=== PATIENT | male | born 1960 | race African-American/Black ===

== ENCOUNTER 2020-09-12 10:50 | Inpatient (IN) | payer OTHER ==
[2020-09-12 12:46] LABS: BASO % 0.4 % (0-2.0); EOS % 4.6 % (0-4.5); HEMATOCRIT 39.5 % (35.4-49); HEMOGLOBIN 12.4 GM/dL (11.7-16.9); MCH 24.9 pg (25.7-33.7); MCHC 31.3 g/dl (32.0-35.9); MEAN CELL VOLUME 79.4 fl (80-96); MEAN PLT VOLUME 9.3 fl (7.5-11.1); MONO % 8.1 % (3.8-10.2); NEUT % 75.9 % (42.8-82.8); PLATELET COUNT 242 K/MM3 (134-434); RBC 4.98 M/mm3 (4.00-5.60); RDW 15.1 % (11.9-15.9); WHITE BLOOD COUNT 6.9 K/mm3 (4.0-10.0)
[2020-09-12 12:55] LABS: INR 1.15 (0.83-1.09); PROTHROMBIN TIME (PATIENT) 13.9 SEC (9.7-13.0)
[2020-09-12 12:58] LABS: ACTIVATED PTT 32.7 SECONDS (25.2-36.5)
[2020-09-12 13:08] LABS: CALCIUM 9.1 mg/dL (8.5-10.1)
[2020-09-12 13:09] LABS: ALBUMIN 3.4 g/dl (3.4-5.0); BLOOD UREA NITROGEN 7.8 mg/dL (7-18); MAGNESIUM 1.7 mg/dL (1.8-2.4)
[2020-09-12 13:12] LABS: CREATININE 0.8 mg/dL (0.55-1.3)
[2020-09-12 13:14] LABS: BILIRUBIN,TOTAL 0.4 mg/dL (0.2-1); TOT PROT 7.8 g/dl (6.4-8.2)
[2020-09-13 07:14] LABS: HEMATOCRIT 35.9 % (35.4-49); HEMOGLOBIN 11.4 GM/dL (11.7-16.9); MCH 24.8 pg (25.7-33.7); MCHC 31.8 g/dl (32.0-35.9); MEAN CELL VOLUME 78.1 fl (80-96); MEAN PLT VOLUME 9.1 fl (7.5-11.1); PLATELET COUNT 226 K/MM3 (134-434); RBC 4.59 M/mm3 (4.00-5.60); RDW 14.8 % (11.9-15.9); WHITE BLOOD COUNT 6.4 K/mm3 (4.0-10.0)
[2020-09-13 07:20] LABS: INR 1.25 (0.83-1.09)
[2020-09-13 07:35] LABS: CALCIUM 9.1 mg/dL (8.5-10.1)
[2020-09-13 07:36] LABS: BLOOD UREA NITROGEN 8.4 mg/dL (7-18); MAGNESIUM 1.5 mg/dL (1.8-2.4)
[2020-09-13 07:39] LABS: CREATININE 0.7 mg/dL (0.55-1.3)
[2020-09-14 08:23] LABS: ALBUMIN 3.3 g/dl (3.4-5.0); BLOOD UREA NITROGEN 6.1 mg/dL (7-18); MAGNESIUM 1.7 mg/dL (1.8-2.4)
[2020-09-14 08:26] LABS: CREATININE 0.7 mg/dL (0.55-1.3); PHOSPHOROUS 2.6 mg/dL (2.5-4.9)
[2020-09-14 08:27] LABS: BILIRUBIN,TOTAL 0.8 mg/dL (0.2-1); TOT PROT 7.3 g/dl (6.4-8.2)
[2020-09-14 14:40] VITALS: BP 123/86; PULSE 74; TEMP 98.3
[2020-09-14 14:48] VITALS: BMI 17.9
== END 2020-09-14 21:05 | disposition short-term general hospital (02) | DRG 110 ==
LOC: JER 10:50 → JERBED 11:18 → J7W 09-13 11:21 → J5S 09-14 18:19
PROVIDERS: ADMIT Internal Medicine; ATTEND Internal Medicine
DX: C13.1 Malignant neoplasm of aryepiglottic fold, hypopharyngeal aspect (principal); R13.12 Dysphagia, oropharyngeal phase; I10 Essential (primary) hypertension; E78.5 Hyperlipidemia, unspecified; F31.9 Bipolar disorder, unspecified; B35.1 Tinea unguium; R62.7 Adult failure to thrive; F03.90 Unspecified dementia, unspecified severity, without behavioral disturbance, psychotic disturbance, mood disturbance, and anxiety; G40.909 Epilepsy, unspecified, not intractable, without status epilepticus; D64.9 Anemia, unspecified; E43 Unspecified severe protein-calorie malnutrition; Z68.1 Body mass index [BMI] 19.9 or less, adult
CPT/HCPCS: 36415; 71045-TC-FY; 80048; 80053; 83735; 84100; 85025; 85027; 85610; 85730; 86850; 86900; 86901; 93005; 93010; 99285-25; C9803; U0003

== ENCOUNTER 2020-10-17 13:14 | Observation (INO) | payer OTHER ==
[2020-10-17 13:28] VITALS: BMI 19.5
[2020-10-17] MEDS ORDERED: DIPHTH,PERTUSS(ACELL),TET 0.5 ML DISP.SYRIN IM ONE ×2 (14:07→14:27)
[2020-10-17 14:54] LABS: BASO % 0.6 % (0-2.0); EOS % 1.9 % (0-4.5); HEMATOCRIT 28.8 % (35.4-49); HEMOGLOBIN 9.1 GM/dL (11.7-16.9); LYMPH % 7.3 % (8-40); MCH 24.9 pg (25.7-33.7); MCHC 31.8 g/dl (32.0-35.9); MEAN CELL VOLUME 78.3 fl (80-96); MEAN PLT VOLUME 7.7 fl (7.5-11.1); MONO % 5.8 % (3.8-10.2); NEUT % 84.4 % (42.8-82.8); PLATELET COUNT 563 K/MM3 (134-434); RBC 3.67 M/mm3 (4.00-5.60); RDW 16.9 % (11.9-15.9)
[2020-10-17 15:06] LABS: INR 1.1 (0.83-1.09); PROTHROMBIN TIME (PATIENT) 13.3 SEC (9.7-13.0)
[2020-10-17 15:09] LABS: ACTIVATED PTT 37.9 SECONDS (25.2-36.5)
[2020-10-17 15:19] LABS: CHLORIDE 100 mmol/L (98-107); POTASSIUM 4.8 mmol/L (3.5-5.1); SODIUM 134 mmol/L (136-145)
[2020-10-17 15:21] LABS: CALCIUM 8.7 mg/dL (8.5-10.1)
[2020-10-17 15:22] LABS: ALBUMIN 2.7 g/dl (3.4-5.0); ANION GAP 5 MMOL/L (8-16); BLOOD UREA NITROGEN 11.9 mg/dL (7-18); CO2 29 mmol/L (21-32); GLUCOSE,RANDOM 73 mg/dL (74-106); MAGNESIUM 1.9 mg/dL (1.8-2.4)
[2020-10-17 15:25] LABS: CREATININE 0.6 mg/dL (0.55-1.3); PHOSPHOROUS 2.8 mg/dL (2.5-4.9); SGOT/AST 30 U/L (15-37); SGPT/ALT 31 U/L (13-61)
[2020-10-17 15:26] LABS: BILIRUBIN,TOTAL 0.2 mg/dL (0.2-1)
[2020-10-17 15:27] LABS: TOT PROT 7.6 g/dl (6.4-8.2)
[2020-10-17 15:28] LABS: ALK PHOS 140 U/L (45-117)
[2020-10-17 16:57] LABS: PH,URINE >= 9.0 (5.0-8.0); URINE APPEARANCE CLOUDY; URINE BILIRUBIN NEGATIVE (NEGATIVE); URINE COLOR YELLOW; URINE GLUCOSE (UA) NEGATIVE (NEGATIVE); URINE KETONE NEGATIVE (NEGATIVE); URINE LEUK ESTERASE NEGATIVE (NEGATIVE); URINE NITRITE NEGATIVE (NEGATIVE); URINE PROTEIN NEGATIVE (NEGATIVE); URINE UROBILINOGEN 0.2 mg/dL (0.2-1.0)
[2020-10-18] MEDS ORDERED: VANCOMYCIN 1,000 MG in DEXTROSE 5%-WATER - 250 ML IVPB ONE (05:54)
[2020-10-18] MEDS ORDERED: PIPERACILLIN/TAZOB 4.5 GM 4.5 GM in DEXTROSE 5%-WATER 100 ML IVPB ONE (05:55)
[2020-10-18] MEDS ORDERED: PIPERACILLIN/TAZOB 4.5 GM 4.5 GM/100 ML BAG IVPB ONE (06:21)
[2020-10-18] MEDS ORDERED: VANCOMYCIN 1 GRAM (PRE-DOCKED) 1,000 MG/250 ML BAG IVPB ONE (08:45)
[2020-10-18 08:52] LABS: BASO % 0.7 % (0-2.0); EOS % 2.1 % (0-4.5); HEMATOCRIT 26.6 % (35.4-49); HEMOGLOBIN 8.9 GM/dL (11.7-16.9); MCH 25.7 pg (25.7-33.7); MCHC 33.4 g/dl (32.0-35.9); MEAN CELL VOLUME 76.9 fl (80-96); MEAN PLT VOLUME 7.3 fl (7.5-11.1); MONO % 5.8 % (3.8-10.2); NEUT % 81.4 % (42.8-82.8); PLATELET COUNT 517 K/MM3 (134-434); RBC 3.46 M/mm3 (4.00-5.60); WHITE BLOOD COUNT 9.2 K/mm3 (4.0-10.0)
[2020-10-18 09:14] LABS: POTASSIUM 4.5 mmol/L (3.5-5.1)
[2020-10-18 09:25] LABS: ALBUMIN 2.5 g/dl (3.4-5.0); CALCIUM 8.9 mg/dL (8.5-10.1)
[2020-10-18 09:28] LABS: CREATININE 0.7 mg/dL (0.55-1.3)
[2020-10-18 09:33] LABS: BILIRUBIN,TOTAL 0.9 mg/dL (0.2-1)
[2020-10-18 09:37] LABS: BLOOD UREA NITROGEN 10.8 mg/dL (7-18)
[2020-10-18 15:01] VITALS: TEMP 98.5
[2020-10-18] MEDS ORDERED: MAGNESIUM HYDROXIDE 400 MG/5 ML SUSPENSION PO PRN (17:00)
[2020-10-18 21:00] VITALS: BP 155/99; PULSE 89
[2020-10-18] MEDS ORDERED: FAMOTIDINE 20 MG TABLET PEG SCH (22:00)
[2020-10-18] MEDS ORDERED: GEMFIBROZIL 600 MG TABLET (FP) PO SCH (22:00)
[2020-10-18] MEDS ORDERED: MIRTAZAPINE 15 MG TABLET (FP) GT SCH (22:00)
[2020-10-19] MEDS ORDERED: THIAMINE HCL 100 MG TABLET (FP) PO SCH (10:00)
[2020-10-19] MEDS ORDERED: amLODIPine BESYLATE 5 MG TABLET (FP) GT SCH (10:00)
== END 2020-10-18 21:00 | disposition short-term general hospital (02) ==
LOC: JER 13:14 → JERBED 13:58
PROVIDERS: ADMIT Internal Medicine; ATTEND Internal Medicine
PROC: 3E0234Z Introduction of Serum, Toxoid and Vaccine into Muscle, Percutaneous Approach (ICD-10-PCS; principal; 2020-10-17)
PROC: 3E03329 Introduction of Other Anti-infective into Peripheral Vein, Percutaneous Approach (ICD-10-PCS; 2020-10-17)
DX: R55 Syncope and collapse (principal); R29.6 Repeated falls; S00.83XA Contusion of other part of head, initial encounter; G40.909 Epilepsy, unspecified, not intractable, without status epilepticus; F10.21 Alcohol dependence, in remission; R13.10 Dysphagia, unspecified; J45.909 Unspecified asthma, uncomplicated; J18.9 Pneumonia, unspecified organism; I10 Essential (primary) hypertension; Z20.822 Contact with and (suspected) exposure to COVID-19; R79.89 Other specified abnormal findings of blood chemistry; M25.561 Pain in right knee; F31.9 Bipolar disorder, unspecified; E78.5 Hyperlipidemia, unspecified; Z85.818 Personal history of malignant neoplasm of other sites of lip, oral cavity, and pharynx; Z93.1 Gastrostomy status; Z87.891 Personal history of nicotine dependence; I45.81 Long QT syndrome; D64.9 Anemia, unspecified; F20.9 Schizophrenia, unspecified; W18.39XA Other fall on same level, initial encounter; Y93.89 Activity, other specified; Y92.099 Unspecified place in other non-institutional residence as the place of occurrence of the external cause
CPT/HCPCS: 36415; 70450-TC; 71045-TC-FY; 72125-TC; 72170-TC-FY; 73562-TC-RT-FY; 80053; 80177; 80185; 81003; 82550; 82553; 83735; 84100; 84484; 85025; 85610; 85730; 87040; 87086; 90471; 90715; 93005; 93010; 96365; 96367; 99285-25; C9803; G0378; U0003

== ENCOUNTER 2020-11-02 10:19 | Emergency (ER) | payer OTHER ==
[2020-11-02 11:23] VITALS: BMI 23.3
[2020-11-02 12:21] LABS: BASO % 0.5 % (0-2.0); EOS % 1.2 % (0-4.5); HEMATOCRIT 30.1 % (35.4-49); HEMOGLOBIN 9.6 GM/dL (11.7-16.9); LYMPH % 11.8 % (8-40); MCH 25.4 pg (25.7-33.7); MCHC 31.9 g/dl (32.0-35.9); MEAN CELL VOLUME 79.7 fl (80-96); MEAN PLT VOLUME 9.2 fl (7.5-11.1); MONO % 9.8 % (3.8-10.2); NEUT % 76.7 % (42.8-82.8); PLATELET COUNT 356 K/MM3 (134-434); RBC 3.77 M/mm3 (4.00-5.60); RDW 19.8 % (11.9-15.9); WHITE BLOOD COUNT 6.9 K/mm3 (4.0-10.0)
[2020-11-02 12:40] LABS: CALCIUM 9.3 mg/dL (8.5-10.1)
[2020-11-02 12:41] LABS: ALBUMIN 3.2 g/dl (3.4-5.0); BLOOD UREA NITROGEN 22.9 mg/dL (7-18)
[2020-11-02 12:44] LABS: CREATININE 0.9 mg/dL (0.55-1.3)
[2020-11-02 12:45] LABS: BILIRUBIN,TOTAL 0.7 mg/dL (0.2-1)
[2020-11-02 12:46] LABS: TOT PROT 8.3 g/dl (6.4-8.2)
[2020-11-02 12:51] LABS: POTASSIUM 5.3 mmol/L (3.5-5.1)
[2020-11-02 20:35] VITALS: BP 142/89; PULSE 77; TEMP 98.1
== END 2020-11-02 22:00 | disposition short-term general hospital (02) ==
LOC: JER 10:19
DX: R04.2 Hemoptysis (principal); D10.7 Benign neoplasm of hypopharynx
CPT/HCPCS: 36415; 70491-TC; 71045-TC-FY; 71260-TC; 80053; 85025; 99285-25; Q9967

== ENCOUNTER 2020-12-07 10:50 | Emergency (ER) | payer OTHER ==
[2020-12-07] MEDS ORDERED: MIDAZOLAM HCL 2 MG/2 ML SINGLE DOSE VIAL IM ONE (11:19)
[2020-12-07] MEDS ORDERED: MIDAZOLAM HCL 2 MG/2 ML SINGLE DOSE VIAL ONE (11:20)
[2020-12-07] MEDS ORDERED: LIDOCAINE 1%/EPI 1:100000 (50 ML MULTI DOSE VIAL) ONE (11:20)
[2020-12-07 11:33] VITALS: TEMP 98.1; BMI 19.0
[2020-12-07 19:31] VITALS: BP 117/69; PULSE 90
== END 2020-12-07 19:32 | disposition home or self-care (01) ==
LOC: JER 10:50
PROC: 08QNXZZ Repair Right Upper Eyelid, External Approach (ICD-10-PCS; principal; 2020-12-07)
PROC: 3E0234Z Introduction of Serum, Toxoid and Vaccine into Muscle, Percutaneous Approach (ICD-10-PCS; 2020-12-07)
DX: S01.111A Laceration without foreign body of right eyelid and periocular area, initial encounter (principal)
CPT/HCPCS: 74018-TC-FY; 99284-25

== ENCOUNTER 2020-12-08 21:21 | Inpatient (IN) | payer OTHER ==
[2020-12-08] MEDS ORDERED: RAPID SEQUENCE INTUBATION KIT NR ONE (21:28)
[2020-12-08] MEDS ORDERED: LACTATED RINGERS SOLUTION 1000 ML INFUS.BAG IV ONE ×2 (21:41→21:42)
[2020-12-08] MEDS ORDERED: VANCOMYCIN 1 GM in D5W (PRE-DOCKED) 1,000 MG/250 ML IVPB ONE (21:43)
[2020-12-08] MEDS ORDERED: PIPERACILLIN/TAZOB 4.5 GM 4.5 GM in DEXTROSE 5%-WATER 100 ML IVPB ONE (21:44)
[2020-12-08] MEDS ORDERED: ROCURONIUM BROMIDE 50 MG/5 ML VIAL IV ONE (21:45)
[2020-12-08] MEDS ORDERED: ETOMIDATE 20 MG/10 ML AMPUL IVPUSH ONE (21:45)
[2020-12-08] MEDS ORDERED: VANCOMYCIN 1 GRAM (PRE-DOCKED) 1,000 MG/250 ML BAG IVPB ONE (21:47)
[2020-12-08] MEDS ORDERED: PIPERACILLIN/TAZOB 4.5 GM 4.5 GM/100 ML BAG IVPB ONE (21:47)
[2020-12-08] MEDS ORDERED: MAGNESIUM SULF 50% (8.12 MEQ/2 ML-1 GM VIAL) IVPB ONE (21:59)
[2020-12-08 22:04] LABS: BASO % 0.4 % (0-2.0); EOS % 0.4 % (0-4.5); HEMATOCRIT 33.4 % (35.4-49); HEMOGLOBIN 10.3 GM/dL (11.7-16.9); LYMPH % 12.4 % (8-40); MCH 24.8 pg (25.7-33.7); MCHC 30.8 g/dl (32.0-35.9); MEAN CELL VOLUME 80.6 fl (80-96); MEAN PLT VOLUME 8.8 fl (7.5-11.1); MONO % 3.6 % (3.8-10.2); NEUT % 83.2 % (42.8-82.8); PLATELET COUNT 283 K/MM3 (134-434); RBC 4.14 M/mm3 (4.00-5.60); RDW 18.6 % (11.9-15.9); WHITE BLOOD COUNT 5.2 K/mm3 (4.0-10.0)
[2020-12-08 22:13] LABS: INR 1.53 (0.83-1.09); PROTHROMBIN TIME (PATIENT) 18.6 SEC (9.7-13.0)
[2020-12-08 22:15] LABS: ACTIVATED PTT 37.2 SECONDS (25.2-36.5)
[2020-12-08] MEDS ORDERED: SODIUM CHLORIDE 0.9% 500 ML INFUS.BAG IV ONE ×3 (22:15→23:03)
[2020-12-08 22:19] LABS: ARTERIAL BLD GAS O2 SATURATION 99.3 mmHg (95-98); ARTERIAL BLOOD GAS BASE EXCESS -10.6 mmol/L (-2-2); ARTERIAL BLOOD GAS PO2 255.5 mmHg (80-100)
[2020-12-08 22:20] LABS: ALLENS TEST POSITIVE; VENT MODE A/C
[2020-12-08 22:21] LABS: VENT RATE 12
[2020-12-08 22:22] LABS: ARTERIAL BLOOD GAS pH 7.119 (7.350-7.450)
[2020-12-08 22:23] LABS: CHLORIDE 115 mmol/L (98-107); SODIUM 154 mmol/L (136-145)
[2020-12-08] MEDS ORDERED: MAGNESIUM SULFATE IN WATER 2 GM/50 ML IVPB IVPB ONE (22:23)
[2020-12-08] MEDS ORDERED: MIDAZOLAM 100 MG/100 ML MG IVPB ONE (22:23)
[2020-12-08 22:26] LABS: ALBUMIN 2.7 g/dl (3.4-5.0); ANION GAP 16 MMOL/L (8-16); BLOOD UREA NITROGEN 66.5 mg/dL (7-18); CO2 22 mmol/L (21-32); GLUCOSE,RANDOM 81 mg/dL (74-106)
[2020-12-08 22:28] LABS: CREATININE 2.2 mg/dL (0.55-1.3); SGOT/AST 57 U/L (15-37); SGPT/ALT 23 U/L (13-61)
[2020-12-08 22:31] LABS: TOT PROT 7.2 g/dl (6.4-8.2)
[2020-12-08 22:32] LABS: ALK PHOS 348 U/L (45-117)
[2020-12-08] MEDS: MIDAZOLAM 100 MG/100 ML MG IVPB SCH (22:39)
[2020-12-08 22:56] LABS: BILIRUBIN,TOTAL 0.4 mg/dL (0.2-1); LACTIC ACID 11.2 mmol/L (0.4-2.0); MAGNESIUM 4.2 mg/dL (1.8-2.4)
[2020-12-08 23:45] LABS: EPI CELLS 7 /uL (0-25.1); HYALINE CASTS 2 /uL (0-3.1); URINE APPEARANCE CLEAR; URINE BACTERIA 8 /uL (0-1359); URINE BILIRUBIN NEGATIVE (NEGATIVE); URINE COLOR YELLOW; URINE GLUCOSE (UA) NEGATIVE (NEGATIVE); URINE KETONE NEGATIVE (NEGATIVE); URINE LEUK ESTERASE NEGATIVE (NEGATIVE); URINE NITRITE NEGATIVE (NEGATIVE); URINE PROTEIN 1+ (NEGATIVE); URINE RBC 8 /uL (0-23.9); URINE UROBILINOGEN 0.2 mg/dL (0.2-1.0); URINE WBC 5 /uL (0-25.8)
[2020-12-09] MEDS ORDERED: FENTANYL IVPB 500 MCG/100 ML BAG IVPB SCH (00:15)
[2020-12-09 00:20] LABS: LACTIC ACID 5.7 mmol/L (0.4-2.0)
[2020-12-09 00:42] LABS: ARTERIAL BLOOD GAS BASE EXCESS -4.1 mmol/L (-2-2); ARTERIAL BLOOD GAS pH 7.309 (7.350-7.450)
[2020-12-09 00:43] LABS: ALLENS TEST POSITIVE; VENT RATE 16
[2020-12-09] MEDS: DEXTROSE 5%-LACTATED RINGERS 1,000 ML IV SCH ×2 (02:54→14:45)
[2020-12-09] MEDS ORDERED: PIPERACILLIN/TAZOB 2.25 GM 2.25 GM/50 ML BAG IVPB ONE (04:25)
[2020-12-09] MEDS: PIPERACILLIN/TAZOB 2.25 GM 2.25 GM in DEXTROSE 5%-WATER - 50 ML IVPB SCH ×4 (04:29→22:09)
[2020-12-09] MEDS ORDERED: PIPERACILLIN/TAZOB 4.5 GM 4.5 GM in DEXTROSE 5%-WATER 100 ML IVPB SCH (06:00)
[2020-12-09 06:23] LABS: ARTERIAL BLD GAS O2 SATURATION 90.2 mmHg (95-98); ARTERIAL BLOOD GAS BASE EXCESS -1.4 mmol/L (-2-2); ARTERIAL BLOOD GAS PO2 58.9 mmHg (80-100); ARTERIAL BLOOD GAS pH 7.383 (7.350-7.450)
[2020-12-09 06:24] LABS: ALLENS TEST POSITIVE
[2020-12-09 06:25] LABS: VENT MODE A/C; VENT RATE 16
[2020-12-09 08:09] LABS: BASO % 0.3 % (0-2.0); EOS % 0.2 % (0-4.5); HEMATOCRIT 33.4 % (35.4-49); HEMOGLOBIN 10.3 GM/dL (11.7-16.9); LYMPH % 1.6 % (8-40); MCH 24.2 pg (25.7-33.7); MCHC 30.8 g/dl (32.0-35.9); MEAN CELL VOLUME 78.3 fl (80-96); MEAN PLT VOLUME 8.9 fl (7.5-11.1); MONO % 4.7 % (3.8-10.2); NEUT % 93.2 % (42.8-82.8); PLATELET COUNT 274 K/MM3 (134-434); RBC 4.26 M/mm3 (4.00-5.60); RDW 18.7 % (11.9-15.9); WHITE BLOOD COUNT 14.5 K/mm3 (4.0-10.0)
[2020-12-09 08:13] LABS: ALBUMIN 2.6 g/dl (3.4-5.0); CALCIUM 8.3 mg/dL (8.5-10.1)
[2020-12-09 08:14] LABS: BLOOD UREA NITROGEN 69.2 mg/dL (7-18)
[2020-12-09 08:17] LABS: BILIRUBIN,TOTAL 0.4 mg/dL (0.2-1); CREATININE 1.9 mg/dL (0.55-1.3); PHOSPHOROUS 5.2 mg/dL (2.5-4.9); TOT PROT 6.7 g/dl (6.4-8.2)
[2020-12-09] MEDS ORDERED: PIPERACILLIN/TAZOBACTAM 2.25 GM VIAL IVPB ONE ×3 (09:32→21:33)
[2020-12-09] MEDS ORDERED: DEXTROSE 5%-WATER - 50 ML IVPB ONE ×3 (09:32→21:33)
[2020-12-09 09:36] LABS: ANISOCYTOSIS 1+; MACROCYTOSIS 0; PLATELET ESTIMATE NORMAL
[2020-12-09] MEDS: PANTOPRAZOLE SODIUM 40 MG VIAL IVPUSH SCH (09:39)
[2020-12-09] MEDS ORDERED: PT OWN MED DRAWER 7, Y5N ONE ×2 (10:29→11:32)
[2020-12-09] MEDS ORDERED: MIDAZOLAM IN 0.9 % SOD.CHLORID 1 MG/1 ML PLAST..BAG ONE (12:18)
[2020-12-09] MEDS: MIDAZOLAM 100 MG/100 ML MG IVPB SCH (12:30)
[2020-12-09] MEDS: MUPIROCIN 2% TOPICAL OINTMENT FOR DECOLONIZATION NS SCH ×2 (12:33→22:11)
[2020-12-09] MEDS: HEPARIN NA (PORCINE) 5,000 UNITS/ML 1ML VIAL SQ SCH ×2 (14:05→22:08)
[2020-12-09] MEDS: ALBUTEROL SO4 2.5/IPRATROPIUM 0.5 INH SOL 3 ML VIAL.NEB. NEB SCH ×2 (14:15→20:30)
[2020-12-09 16:23] LABS: LACTIC ACID 2.7 mmol/L (0.4-2.0)
[2020-12-09] MEDS: CHLORHEXIDINE GLUCONATE 4% CLEANSER FOR DECOLONIZATION TP SCH (22:08)
[2020-12-10] MEDS: PIPERACILLIN/TAZOB 2.25 GM 2.25 GM in DEXTROSE 5%-WATER - 50 ML IVPB SCH ×4 (05:49→21:32)
[2020-12-10] MEDS: DEXTROSE 5%-LACTATED RINGERS 1,000 ML IV SCH ×2 (05:50→14:25)
[2020-12-10] MEDS: MIDAZOLAM 100 MG/100 ML MG IVPB SCH ×3 (05:51→22:00)
[2020-12-10] MEDS: HEPARIN NA (PORCINE) 5,000 UNITS/ML 1ML VIAL SQ SCH ×3 (05:55→21:32)
[2020-12-10] MEDS ORDERED: DEXTROSE 5%-WATER - 50 ML IVPB ONE ×4 (06:05→21:31)
[2020-12-10] MEDS ORDERED: PIPERACILLIN/TAZOBACTAM 2.25 GM VIAL IVPB ONE ×4 (06:05→21:31)
[2020-12-10 07:30] LABS: HEMATOCRIT 31.8 % (35.4-49); HEMOGLOBIN 10.1 GM/dL (11.7-16.9); MCH 24.6 pg (25.7-33.7); MCHC 31.7 g/dl (32.0-35.9); MEAN CELL VOLUME 77.7 fl (80-96); MEAN PLT VOLUME 8.6 fl (7.5-11.1); PLATELET COUNT 264 K/MM3 (134-434); RDW 18.7 % (11.9-15.9)
[2020-12-10 07:51] LABS: CALCIUM 8.1 mg/dL (8.5-10.1)
[2020-12-10 07:52] LABS: BLOOD UREA NITROGEN 62.2 mg/dL (7-18); MAGNESIUM 3.3 mg/dL (1.8-2.4)
[2020-12-10 07:55] LABS: CREATININE 1.6 mg/dL (0.55-1.3); PHOSPHOROUS 3.6 mg/dL (2.5-4.9)
[2020-12-10 07:57] LABS: BILIRUBIN,TOTAL 0.3 mg/dL (0.2-1); TOT PROT 5.8 g/dl (6.4-8.2)
[2020-12-10] MEDS: ALBUTEROL SO4 2.5/IPRATROPIUM 0.5 INH SOL 3 ML VIAL.NEB. NEB SCH ×4 (08:30→20:40)
[2020-12-10] MEDS: PANTOPRAZOLE SODIUM 40 MG VIAL IVPUSH SCH (09:40)
[2020-12-10] MEDS: MUPIROCIN 2% TOPICAL OINTMENT FOR DECOLONIZATION NS SCH ×2 (09:40→21:34)
[2020-12-10] MEDS ORDERED: VANCOMYCIN 1 GRAM (PRE-DOCKED) 1,000 MG/250 ML BAG IVPB ONE (10:30)
[2020-12-10] MEDS: KCL 10 MEQ IVPB 10 MEQ/100 ML INFUS.BAG IVPB SCH ×3 (14:36→18:53)
[2020-12-10] MEDS ORDERED: FENTANYL NS IVPB 500 MCG/100 ML BAG IVPB ONE (17:18)
[2020-12-10] MEDS: FENTANYL NS IVPB 500 MCG/100 ML BAG IVPB SCH (18:53)
[2020-12-10] MEDS: CHLORHEXIDINE GLUCONATE 4% CLEANSER FOR DECOLONIZATION TP SCH (21:32)
[2020-12-11] MEDS ORDERED: DEXTROSE 5%-WATER - 50 ML IVPB ONE ×4 (02:15→21:34)
[2020-12-11] MEDS ORDERED: PIPERACILLIN/TAZOBACTAM 2.25 GM VIAL IVPB ONE ×4 (02:15→21:34)
[2020-12-11] MEDS: PIPERACILLIN/TAZOB 2.25 GM 2.25 GM in DEXTROSE 5%-WATER - 50 ML IVPB SCH ×4 (02:18→21:35)
[2020-12-11] MEDS: FENTANYL NS IVPB 500 MCG/100 ML BAG IVPB SCH ×3 (03:30→17:30)
[2020-12-11] MEDS: MIDAZOLAM 100 MG/100 ML MG IVPB SCH ×2 (03:30→17:16)
[2020-12-11] MEDS: DEXTROSE 5%-LACTATED RINGERS 1,000 ML IV SCH (05:11)
[2020-12-11] MEDS: HEPARIN NA (PORCINE) 5,000 UNITS/ML 1ML VIAL SQ SCH ×3 (05:11→21:35)
[2020-12-11 07:11] LABS: HEMATOCRIT 30.3 % (35.4-49); HEMOGLOBIN 9.6 GM/dL (11.7-16.9); MCH 24.6 pg (25.7-33.7); MCHC 31.8 g/dl (32.0-35.9); MEAN CELL VOLUME 77.5 fl (80-96); MEAN PLT VOLUME 8.9 fl (7.5-11.1); PLATELET COUNT 254 K/MM3 (134-434); RBC 3.92 M/mm3 (4.00-5.60); WHITE BLOOD COUNT 10.7 K/mm3 (4.0-10.0)
[2020-12-11 07:33] LABS: CALCIUM 8.6 mg/dL (8.5-10.1)
[2020-12-11 07:35] LABS: ALBUMIN 1.9 g/dl (3.4-5.0); BLOOD UREA NITROGEN 51.4 mg/dL (7-18); MAGNESIUM 2.9 mg/dL (1.8-2.4)
[2020-12-11 07:37] LABS: CREATININE 1.3 mg/dL (0.55-1.3); PHOSPHOROUS 2.9 mg/dL (2.5-4.9)
[2020-12-11 07:38] LABS: BILIRUBIN,TOTAL 0.2 mg/dL (0.2-1); TOT PROT 5.8 g/dl (6.4-8.2)
[2020-12-11] MEDS: ALBUTEROL SO4 2.5/IPRATROPIUM 0.5 INH SOL 3 ML VIAL.NEB. NEB SCH ×4 (08:54→20:18)
[2020-12-11] MEDS: PANTOPRAZOLE SODIUM 40 MG VIAL IVPUSH SCH (09:02)
[2020-12-11] MEDS: MUPIROCIN 2% TOPICAL OINTMENT FOR DECOLONIZATION NS SCH ×2 (10:36→21:31)
[2020-12-11] MEDS ORDERED: VANCOMYCIN 1 GM in D5W (PRE-DOCKED) 1,000 MG/250 ML IVPB ONE (15:55)
[2020-12-11] MEDS ORDERED: VANCOMYCIN 1,000 MG in DEXTROSE 5%-WATER - 250 ML IVPB ONE (18:08)
[2020-12-11] MEDS: SODIUM CHLORIDE 0.45% 1,000 ML IV SCH (18:15)
[2020-12-11] MEDS: CHLORHEXIDINE GLUCONATE 4% CLEANSER FOR DECOLONIZATION TP SCH (21:31)
[2020-12-12] MEDS ORDERED: PIPERACILLIN/TAZOBACTAM 2.25 GM VIAL IVPB ONE ×2 (01:14→08:20)
[2020-12-12] MEDS ORDERED: DEXTROSE 5%-WATER - 50 ML IVPB ONE ×2 (01:14→08:20)
[2020-12-12] MEDS: PIPERACILLIN/TAZOB 2.25 GM 2.25 GM in DEXTROSE 5%-WATER - 50 ML IVPB SCH ×2 (02:05→08:23)
[2020-12-12] MEDS: MIDAZOLAM 100 MG/100 ML MG IVPB SCH ×2 (02:14→06:18)
[2020-12-12] MEDS: FENTANYL NS IVPB 500 MCG/100 ML BAG IVPB SCH ×2 (02:14→17:30)
[2020-12-12] MEDS: HEPARIN NA (PORCINE) 5,000 UNITS/ML 1ML VIAL SQ SCH ×3 (05:33→21:22)
[2020-12-12 07:39] LABS: HEMATOCRIT 28.2 % (35.4-49); HEMOGLOBIN 8.9 GM/dL (11.7-16.9); MCH 24.6 pg (25.7-33.7); MCHC 31.8 g/dl (32.0-35.9); MEAN CELL VOLUME 77.5 fl (80-96); MEAN PLT VOLUME 8.7 fl (7.5-11.1); PLATELET COUNT 246 K/MM3 (134-434); RBC 3.64 M/mm3 (4.00-5.60); RDW 19.3 % (11.9-15.9); WHITE BLOOD COUNT 11.2 K/mm3 (4.0-10.0)
[2020-12-12] MEDS: ALBUTEROL SO4 2.5/IPRATROPIUM 0.5 INH SOL 3 ML VIAL.NEB. NEB SCH ×4 (07:45→20:30)
[2020-12-12 07:59] LABS: ALBUMIN 1.6 g/dl (3.4-5.0); CALCIUM 8.2 mg/dL (8.5-10.1); MAGNESIUM 2.3 mg/dL (1.8-2.4)
[2020-12-12 08:04] LABS: BILIRUBIN,TOTAL 0.2 mg/dL (0.2-1); CREATININE 1.2 mg/dL (0.55-1.3); PHOSPHOROUS 2.9 mg/dL (2.5-4.9); TOT PROT 5.4 g/dl (6.4-8.2)
[2020-12-12] MEDS: MUPIROCIN 2% TOPICAL OINTMENT FOR DECOLONIZATION NS SCH ×2 (09:42→21:21)
[2020-12-12] MEDS: PANTOPRAZOLE SODIUM 40 MG VIAL IVPUSH SCH (09:42)
[2020-12-12] MEDS: POLYETHYLENE GLYCOL 3350 119 GM BTL GT SCH (11:45)
[2020-12-12] MEDS ORDERED: PT OWN MED DRAWER 7, Y5N ONE (12:00)
[2020-12-12] MEDS: FERROUS SO4 300 MG/5 ML ORAL SOLN UNIT DOSE CUPS GT SCH (12:38)
[2020-12-12] MEDS: VANCOMYCIN 1 GRAM (PRE-DOCKED) 1,000 MG/250 ML BAG IVPB SCH (12:42)
[2020-12-12] MEDS: SODIUM CHLORIDE 0.45% 1,000 ML IV SCH ×2 (12:45→18:00)
[2020-12-12] MEDS ORDERED: PIPERACILLIN/TAZOB 4.5 GM 4.5 GM in DEXTROSE 5%-WATER 100 ML IVPB SCH (15:00)
[2020-12-12] MEDS ORDERED: PROPOFOL 1,000,000 MCG/100 ML VIAL ONE (16:31)
[2020-12-12] MEDS ORDERED: PROPOFOL 200 MG/20 ML VIAL IVPUSH ONE (16:32)
[2020-12-12] MEDS: CEFAZOLIN 2 GM/D5W 2 GM/50 ML ML IVPB SCH (17:16)
[2020-12-12] MEDS: PROPOFOL 1,000,000 MCG/100 ML VIAL IVPB SCH ×2 (18:36→21:21)
[2020-12-12] MEDS: CHLORHEXIDINE GLUCONATE 4% CLEANSER FOR DECOLONIZATION TP SCH (21:22)
[2020-12-13] MEDS: CEFAZOLIN 2 GM/D5W 2 GM/50 ML ML IVPB SCH ×3 (01:24→18:25)
[2020-12-13] MEDS: HEPARIN NA (PORCINE) 5,000 UNITS/ML 1ML VIAL SQ SCH ×3 (05:48→21:38)
[2020-12-13 07:10] LABS: HEMATOCRIT 27.5 % (35.4-49); HEMOGLOBIN 8.6 GM/dL (11.7-16.9); MCH 24.3 pg (25.7-33.7); MCHC 31.3 g/dl (32.0-35.9); MEAN CELL VOLUME 77.6 fl (80-96); MEAN PLT VOLUME 8.7 fl (7.5-11.1); PLATELET COUNT 216 K/MM3 (134-434); RBC 3.54 M/mm3 (4.00-5.60); RDW 19.2 % (11.9-15.9); WHITE BLOOD COUNT 11.7 K/mm3 (4.0-10.0)
[2020-12-13 07:27] LABS: ALBUMIN 1.6 g/dl (3.4-5.0); BLOOD UREA NITROGEN 27.3 mg/dL (7-18); CALCIUM 8.3 mg/dL (8.5-10.1); MAGNESIUM 1.7 mg/dL (1.8-2.4)
[2020-12-13 07:30] LABS: CREATININE 0.9 mg/dL (0.55-1.3)
[2020-12-13 07:31] LABS: PHOSPHOROUS 3.1 mg/dL (2.5-4.9)
[2020-12-13 07:32] LABS: BILIRUBIN,TOTAL 0.3 mg/dL (0.2-1); TOT PROT 5.3 g/dl (6.4-8.2)
[2020-12-13] MEDS ORDERED: MAGNESIUM SULF 50% (8.12 MEQ/2 ML-1 GM VIAL) IVPB ONE (08:22)
[2020-12-13] MEDS: ALBUTEROL SO4 2.5/IPRATROPIUM 0.5 INH SOL 3 ML VIAL.NEB. NEB SCH ×4 (09:00→21:00)
[2020-12-13] MEDS: KCL 10 MEQ IVPB 10 MEQ/100 ML INFUS.BAG IVPB SCH ×3 (10:25→12:51)
[2020-12-13] MEDS: PANTOPRAZOLE SODIUM 40 MG VIAL IVPUSH SCH (10:26)
[2020-12-13] MEDS: FERROUS SO4 300 MG/5 ML ORAL SOLN UNIT DOSE CUPS GT SCH (10:26)
[2020-12-13] MEDS: POLYETHYLENE GLYCOL 3350 119 GM BTL GT SCH (10:26)
[2020-12-13] MEDS ORDERED: POTASSIUM CHLORIDE ORAL LIQUID 20 MEQ/15 ML GT ONE (11:42)
[2020-12-13] MEDS: VANCOMYCIN 1 GRAM (PRE-DOCKED) 1,000 MG/250 ML BAG IVPB SCH (11:56)
[2020-12-13] MEDS: MUPIROCIN 2% TOPICAL OINTMENT FOR DECOLONIZATION NS SCH ×2 (12:51→21:38)
[2020-12-13] MEDS: FENTANYL NS IVPB 500 MCG/100 ML BAG IVPB SCH (17:37)
[2020-12-13] MEDS: PROPOFOL 1,000,000 MCG/100 ML VIAL IVPB SCH (17:38)
[2020-12-13] MEDS: SODIUM CHLORIDE 0.45% 1,000 ML IV SCH (17:38)
[2020-12-13] MEDS: levETIRAcetam 500 MG/5 ML ORAL SOLUTION (UNIT-DOSE CUPS) GT SCH (21:39)
[2020-12-13] MEDS: PHENYTOIN 100 MG/4 ML U-D CUP GT SCH (21:39)
[2020-12-13] MEDS: CHLORHEXIDINE GLUCONATE 4% CLEANSER FOR DECOLONIZATION TP SCH (21:39)
[2020-12-14] MEDS: CEFAZOLIN 2 GM/D5W 2 GM/50 ML ML IVPB SCH ×3 (02:22→18:51)
[2020-12-14] MEDS: HEPARIN NA (PORCINE) 5,000 UNITS/ML 1ML VIAL SQ SCH ×3 (06:06→21:32)
[2020-12-14 07:33] LABS: HEMOGLOBIN 9.2 GM/dL (11.7-16.9); MCH 24.3 pg (25.7-33.7); MCHC 31.8 g/dl (32.0-35.9); MEAN CELL VOLUME 76.4 fl (80-96); MEAN PLT VOLUME 8.6 fl (7.5-11.1); PLATELET COUNT 215 K/MM3 (134-434); RDW 18.6 % (11.9-15.9); WHITE BLOOD COUNT 15.2 K/mm3 (4.0-10.0)
[2020-12-14 07:53] LABS: ALBUMIN 1.8 g/dl (3.4-5.0); BLOOD UREA NITROGEN 16.9 mg/dL (7-18); CALCIUM 8.7 mg/dL (8.5-10.1); MAGNESIUM 1.7 mg/dL (1.8-2.4)
[2020-12-14 07:56] LABS: CREATININE 0.7 mg/dL (0.55-1.3)
[2020-12-14 07:57] LABS: PHOSPHOROUS 3.2 mg/dL (2.5-4.9)
[2020-12-14 07:58] LABS: BILIRUBIN,TOTAL 0.3 mg/dL (0.2-1); TOT PROT 6.1 g/dl (6.4-8.2)
[2020-12-14] MEDS ORDERED: MAGNESIUM 2GM/50ML STERILE WATER IVPB IVPB ONE (09:00)
[2020-12-14] MEDS ORDERED: PT OWN MED DRAWER 7, Y5N ONE ×2 (09:01→20:58)
[2020-12-14] MEDS: ALBUTEROL SO4 2.5/IPRATROPIUM 0.5 INH SOL 3 ML VIAL.NEB. NEB SCH ×2 (09:08→12:48)
[2020-12-14] MEDS: PHENYTOIN 100 MG/4 ML U-D CUP GT SCH ×2 (09:17→21:31)
[2020-12-14] MEDS: POLYETHYLENE GLYCOL 3350 119 GM BTL GT SCH (09:17)
[2020-12-14] MEDS: FERROUS SO4 300 MG/5 ML ORAL SOLN UNIT DOSE CUPS GT SCH (09:17)
[2020-12-14] MEDS: levETIRAcetam 500 MG/5 ML ORAL SOLUTION (UNIT-DOSE CUPS) GT SCH ×2 (09:17→21:32)
[2020-12-14] MEDS: POTASSIUM CHLORIDE ORAL LIQUID 20 MEQ/15 ML PO SCH ×2 (09:18→21:32)
[2020-12-14] MEDS: PANTOPRAZOLE SODIUM 40 MG VIAL IVPUSH SCH (09:18)
[2020-12-14] MEDS: VANCOMYCIN 1 GRAM (PRE-DOCKED) 1,000 MG/250 ML BAG IVPB SCH (11:27)
[2020-12-14 15:57] VITALS: BMI 18.1
[2020-12-14] MEDS: amLODIPine BESYLATE 5 MG TABLET (FP) GT SCH (16:03)
[2020-12-14] MEDS: SENNOSIDES 8.8 MG/5 ML BULK BOTTLE GT SCH (16:03)
[2020-12-14] MEDS: SODIUM CHLORIDE 0.45% 1,000 ML IV SCH (18:20)
[2020-12-14] MEDS: MEMANTINE HCL 5 MG TABLET (UD) GT SCH (21:31)
[2020-12-14] MEDS: CHLORHEXIDINE GLUCONATE 4% CLEANSER FOR DECOLONIZATION TP SCH (21:32)
[2020-12-15] MEDS ORDERED: SODIUM CHLORIDE 0.45% 1,000 ML IV SCH (01:11)
[2020-12-15] MEDS ORDERED: PT OWN MED DRAWER 7, Y5N ONE ×5 (01:54→23:14)
[2020-12-15] MEDS: CEFAZOLIN 2 GM/D5W 2 GM/50 ML ML IVPB SCH ×3 (01:59→17:37)
[2020-12-15] MEDS: HEPARIN NA (PORCINE) 5,000 UNITS/ML 1ML VIAL SQ SCH ×2 (06:25→13:21)
[2020-12-15 07:46] LABS: HEMATOCRIT 30.9 % (35.4-49); HEMOGLOBIN 9.8 GM/dL (11.7-16.9); MCH 24.3 pg (25.7-33.7); MCHC 31.7 g/dl (32.0-35.9); MEAN CELL VOLUME 76.8 fl (80-96); MEAN PLT VOLUME 8.6 fl (7.5-11.1); PLATELET COUNT 230 K/MM3 (134-434); RBC 4.03 M/mm3 (4.00-5.60); RDW 18.8 % (11.9-15.9); WHITE BLOOD COUNT 15.7 K/mm3 (4.0-10.0)
[2020-12-15 08:09] LABS: ALBUMIN 1.9 g/dl (3.4-5.0); BILIRUBIN,TOTAL 0.3 mg/dL (0.2-1); TOT PROT 6.2 g/dl (6.4-8.2)
[2020-12-15 08:10] LABS: CALCIUM 9.2 mg/dL (8.5-10.1)
[2020-12-15 08:13] LABS: CREATININE 0.8 mg/dL (0.55-1.3)
[2020-12-15] MEDS ORDERED: POTASSIUM CHLORIDE ORAL LIQUID 20 MEQ/15 ML PO SCH (10:00)
[2020-12-15] MEDS: levETIRAcetam 500 MG/5 ML ORAL SOLUTION (UNIT-DOSE CUPS) GT SCH ×2 (10:27→22:08)
[2020-12-15] MEDS: amLODIPine BESYLATE 5 MG TABLET (FP) GT SCH (10:27)
[2020-12-15] MEDS: THIAMINE HCL 100 MG TABLET (FP) NGT SCH (10:27)
[2020-12-15] MEDS: FERROUS SO4 300 MG/5 ML ORAL SOLN UNIT DOSE CUPS GT SCH (10:28)
[2020-12-15] MEDS: MEMANTINE HCL 5 MG TABLET (UD) GT SCH ×2 (10:28→22:08)
[2020-12-15] MEDS: SENNOSIDES 8.8 MG/5 ML BULK BOTTLE GT SCH (10:29)
[2020-12-15] MEDS: AMINO ACIDS/PROTEIN HYDROLYS 30 ML LIQUID.PKT PO SCH (10:30)
[2020-12-15] MEDS: POLYETHYLENE GLYCOL 3350 119 GM BTL GT SCH (10:34)
[2020-12-15] MEDS: PHENYTOIN 100 MG/4 ML U-D CUP GT SCH (11:18)
[2020-12-15] MEDS ORDERED: VANCOMYCIN 1 GRAM (PRE-DOCKED) 1,000 MG/250 ML BAG IVPB SCH (12:00)
[2020-12-15] MEDS ORDERED: DEXTROSE 5%-0.45% SALINE 1,000 ML IV SCH (14:45)
[2020-12-15] MEDS: MIRTAZAPINE 15 MG TABLET (FP) GT SCH (22:07)
[2020-12-16] MEDS: CEFAZOLIN 2 GM/D5W 2 GM/50 ML ML IVPB SCH ×3 (01:56→18:22)
[2020-12-16 08:01] LABS: BASO % 0.2 % (0-2.0); EOS % 0.6 % (0-4.5); HEMATOCRIT 29.5 % (35.4-49); HEMOGLOBIN 9.5 GM/dL (11.7-16.9); LYMPH % 2.7 % (8-40); MCH 24.3 pg (25.7-33.7); MCHC 32.4 g/dl (32.0-35.9); MEAN CELL VOLUME 75.1 fl (80-96); MEAN PLT VOLUME 8.2 fl (7.5-11.1); MONO % 4.2 % (3.8-10.2); NEUT % 92.3 % (42.8-82.8); PLATELET COUNT 217 K/MM3 (134-434); RBC 3.92 M/mm3 (4.00-5.60); RDW 18.9 % (11.9-15.9); WHITE BLOOD COUNT 13.6 K/mm3 (4.0-10.0)
[2020-12-16 08:25] LABS: CALCIUM 8.4 mg/dL (8.5-10.1)
[2020-12-16 08:26] LABS: ALBUMIN 1.9 g/dl (3.4-5.0); BLOOD UREA NITROGEN 21.7 mg/dL (7-18); MAGNESIUM 1.6 mg/dL (1.8-2.4)
[2020-12-16 08:29] LABS: CREATININE 0.8 mg/dL (0.55-1.3); PHOSPHOROUS 3.3 mg/dL (2.5-4.9)
[2020-12-16 08:30] LABS: BILIRUBIN,TOTAL 0.3 mg/dL (0.2-1); TOT PROT 5.8 g/dl (6.4-8.2)
[2020-12-16] MEDS: AMINO ACIDS/PROTEIN HYDROLYS 30 ML LIQUID.PKT PO SCH (08:50)
[2020-12-16 10:41] LABS: ANISOCYTOSIS 0; MACROCYTOSIS 0; PLATELET ESTIMATE NORMAL
[2020-12-16] MEDS ORDERED: PT OWN MED DRAWER 7, Y5N ONE ×5 (11:03→22:14)
[2020-12-16] MEDS: MEMANTINE HCL 5 MG TABLET (UD) GT SCH ×2 (11:17→22:19)
[2020-12-16] MEDS: SENNOSIDES 8.8 MG/5 ML BULK BOTTLE GT SCH (11:17)
[2020-12-16] MEDS: amLODIPine BESYLATE 5 MG TABLET (FP) GT SCH (11:17)
[2020-12-16] MEDS: FERROUS SO4 300 MG/5 ML ORAL SOLN UNIT DOSE CUPS GT SCH (11:17)
[2020-12-16] MEDS: ENOXAPARIN NA (PORCINE) 40 MG/0.4 ML DISP.SYRIN SQ SCH (11:19)
[2020-12-16] MEDS: levETIRAcetam 500 MG/5 ML ORAL SOLUTION (UNIT-DOSE CUPS) GT SCH ×2 (11:19→22:19)
[2020-12-16] MEDS: THIAMINE HCL 100 MG TABLET (FP) NGT SCH (11:20)
[2020-12-16] MEDS: POLYETHYLENE GLYCOL 3350 119 GM BTL GT SCH ×2 (12:59→16:12)
[2020-12-16] MEDS ORDERED: MAGNESIUM SULF 50% (8.12 MEQ/2 ML-1 GM VIAL) IVPB ONE (14:45)
[2020-12-16] MEDS: KCL 10 MEQ IVPB 10 MEQ/100 ML INFUS.BAG IVPB SCH ×2 (16:09→17:27)
[2020-12-16] MEDS: VANCOMYCIN/WATER BAGS 1,250 MG/250 ML BAG IVPB SCH (16:11)
[2020-12-16] MEDS: MIRTAZAPINE 15 MG TABLET (FP) GT SCH (22:19)
[2020-12-17] MEDS: CEFAZOLIN 2 GM/D5W 2 GM/50 ML ML IVPB SCH ×3 (01:15→17:41)
[2020-12-17 07:49] LABS: BASO % 0.2 % (0-2.0); EOS % 0.9 % (0-4.5); HEMATOCRIT 30.9 % (35.4-49); HEMOGLOBIN 9.8 GM/dL (11.7-16.9); LYMPH % 5.9 % (8-40); MCH 23.8 pg (25.7-33.7); MCHC 31.7 g/dl (32.0-35.9); MONO % 4.9 % (3.8-10.2); NEUT % 88.1 % (42.8-82.8); PLATELET COUNT 224 K/MM3 (134-434); RBC 4.12 M/mm3 (4.00-5.60); RDW 18.7 % (11.9-15.9); WHITE BLOOD COUNT 13.4 K/mm3 (4.0-10.0)
[2020-12-17 08:10] LABS: CALCIUM 8.3 mg/dL (8.5-10.1)
[2020-12-17 08:11] LABS: ALBUMIN 1.9 g/dl (3.4-5.0); BLOOD UREA NITROGEN 20.9 mg/dL (7-18); MAGNESIUM 1.7 mg/dL (1.8-2.4)
[2020-12-17 08:13] LABS: CREATININE 0.8 mg/dL (0.55-1.3)
[2020-12-17 08:14] LABS: PHOSPHOROUS 2.5 mg/dL (2.5-4.9)
[2020-12-17 08:15] LABS: BILIRUBIN,TOTAL 0.3 mg/dL (0.2-1)
[2020-12-17] MEDS ORDERED: POTASSIUM CHLORIDE ORAL LIQUID 20 MEQ/15 ML GT ONE (08:20)
[2020-12-17] MEDS ORDERED: MAGNESIUM SULF 50% (8.12 MEQ/2 ML-1 GM VIAL) IVPB ONE (08:21)
[2020-12-17] MEDS: AMINO ACIDS/PROTEIN HYDROLYS 30 ML LIQUID.PKT PO SCH (09:00)
[2020-12-17] MEDS: levETIRAcetam 500 MG/5 ML ORAL SOLUTION (UNIT-DOSE CUPS) GT SCH ×2 (09:23→21:51)
[2020-12-17] MEDS: SENNOSIDES 8.8 MG/5 ML BULK BOTTLE GT SCH (09:23)
[2020-12-17] MEDS: ENOXAPARIN NA (PORCINE) 40 MG/0.4 ML DISP.SYRIN SQ SCH (09:23)
[2020-12-17] MEDS: MEMANTINE HCL 5 MG TABLET (UD) GT SCH ×2 (09:26→21:51)
[2020-12-17] MEDS: FERROUS SO4 300 MG/5 ML ORAL SOLN UNIT DOSE CUPS GT SCH (09:27)
[2020-12-17] MEDS: amLODIPine BESYLATE 5 MG TABLET (FP) GT SCH (09:28)
[2020-12-17] MEDS: THIAMINE HCL 100 MG TABLET (FP) NGT SCH (09:28)
[2020-12-17] MEDS: VANCOMYCIN/WATER BAGS 1,250 MG/250 ML BAG IVPB SCH (09:28)
[2020-12-17] MEDS: POLYETHYLENE GLYCOL 3350 119 GM BTL GT SCH (09:33)
[2020-12-17] MEDS ORDERED: PT OWN MED DRAWER 7, Y5N ONE (20:33)
[2020-12-17] MEDS: MIRTAZAPINE 15 MG TABLET (FP) GT SCH (21:50)
[2020-12-18] MEDS: CEFAZOLIN 2 GM/D5W 2 GM/50 ML ML IVPB SCH ×3 (01:49→18:18)
[2020-12-18 08:21] LABS: BASO % 0.2 % (0-2.0); EOS % 2.9 % (0-4.5); HEMATOCRIT 28.1 % (35.4-49); HEMOGLOBIN 8.8 GM/dL (11.7-16.9); LYMPH % 5.8 % (8-40); MCH 23.9 pg (25.7-33.7); MCHC 31.5 g/dl (32.0-35.9); MEAN PLT VOLUME 8.3 fl (7.5-11.1); NEUT % 86.1 % (42.8-82.8); PLATELET COUNT 195 K/MM3 (134-434); RDW 18.3 % (11.9-15.9); WHITE BLOOD COUNT 8.7 K/mm3 (4.0-10.0)
[2020-12-18 08:42] LABS: ALBUMIN 1.7 g/dl (3.4-5.0); BLOOD UREA NITROGEN 18.1 mg/dL (7-18); CALCIUM 7.9 mg/dL (8.5-10.1); MAGNESIUM 1.7 mg/dL (1.8-2.4)
[2020-12-18 08:45] LABS: CREATININE 0.7 mg/dL (0.55-1.3)
[2020-12-18 08:46] LABS: PHOSPHOROUS 2.6 mg/dL (2.5-4.9)
[2020-12-18 08:47] LABS: BILIRUBIN,TOTAL 0.3 mg/dL (0.2-1); TOT PROT 5.4 g/dl (6.4-8.2)
[2020-12-18] MEDS: AMINO ACIDS/PROTEIN HYDROLYS 30 ML LIQUID.PKT PO SCH (09:00)
[2020-12-18] MEDS ORDERED: MAGNESIUM OXIDE 400 MG TABLET (FP) GT ONE (09:06)
[2020-12-18] MEDS: amLODIPine BESYLATE 5 MG TABLET (FP) GT SCH (10:00)
[2020-12-18] MEDS: THIAMINE HCL 100 MG TABLET (FP) NGT SCH (10:01)
[2020-12-18] MEDS: levETIRAcetam 500 MG/5 ML ORAL SOLUTION (UNIT-DOSE CUPS) GT SCH ×2 (10:01→21:45)
[2020-12-18] MEDS: SENNOSIDES 8.8 MG/5 ML BULK BOTTLE GT SCH (10:01)
[2020-12-18] MEDS: MEMANTINE HCL 5 MG TABLET (UD) GT SCH ×2 (10:01→21:43)
[2020-12-18] MEDS: POTASSIUM CHLORIDE ORAL LIQUID 20 MEQ/15 ML GT SCH ×2 (10:01→21:43)
[2020-12-18] MEDS: FERROUS SO4 300 MG/5 ML ORAL SOLN UNIT DOSE CUPS GT SCH (10:02)
[2020-12-18] MEDS: POLYETHYLENE GLYCOL 3350 119 GM BTL GT SCH (10:02)
[2020-12-18] MEDS: ENOXAPARIN NA (PORCINE) 40 MG/0.4 ML DISP.SYRIN SQ SCH (10:02)
[2020-12-18] MEDS: VANCOMYCIN/WATER BAGS 1,250 MG/250 ML BAG IVPB SCH (10:44)
[2020-12-18] MEDS: ALBUTEROL SO4 2.5/IPRATROPIUM 0.5 INH SOL 3 ML VIAL.NEB. NEB SCH ×3 (12:03→20:37)
[2020-12-18] MEDS ORDERED: POLYETHYLENE GLYCOL 3350 119 GM BTL PO PRN (13:45)
[2020-12-18] MEDS: MIRTAZAPINE 15 MG TABLET (FP) GT SCH (21:43)
[2020-12-19] MEDS: CEFAZOLIN 2 GM/D5W 2 GM/50 ML ML IVPB SCH ×3 (01:23→17:53)
[2020-12-19] MEDS: ALBUTEROL SO4 2.5/IPRATROPIUM 0.5 INH SOL 3 ML VIAL.NEB. NEB SCH ×4 (07:32→20:40)
[2020-12-19 08:37] LABS: HEMATOCRIT 29.1 % (35.4-49); HEMOGLOBIN 9.3 GM/dL (11.7-16.9); MCH 24.1 pg (25.7-33.7); MEAN CELL VOLUME 75.1 fl (80-96); MEAN PLT VOLUME 7.9 fl (7.5-11.1); PLATELET COUNT 231 K/MM3 (134-434); RBC 3.87 M/mm3 (4.00-5.60); RDW 18.6 % (11.9-15.9); WHITE BLOOD COUNT 11.7 K/mm3 (4.0-10.0)
[2020-12-19 09:05] LABS: BLOOD UREA NITROGEN 14.6 mg/dL (7-18)
[2020-12-19 09:06] LABS: CALCIUM 8.1 mg/dL (8.5-10.1)
[2020-12-19 09:07] LABS: MAGNESIUM 1.6 mg/dL (1.8-2.4)
[2020-12-19 09:09] LABS: CREATININE 0.6 mg/dL (0.55-1.3); PHOSPHOROUS 2.4 mg/dL (2.5-4.9)
[2020-12-19] MEDS ORDERED: PT OWN MED DRAWER 7, Y5N ONE ×3 (10:25→14:33)
[2020-12-19] MEDS: ENOXAPARIN NA (PORCINE) 40 MG/0.4 ML DISP.SYRIN SQ SCH (10:57)
[2020-12-19] MEDS: amLODIPine BESYLATE 5 MG TABLET (FP) GT SCH (10:57)
[2020-12-19] MEDS: levETIRAcetam 500 MG/5 ML ORAL SOLUTION (UNIT-DOSE CUPS) GT SCH ×2 (10:57→21:24)
[2020-12-19] MEDS: THIAMINE HCL 100 MG TABLET (FP) NGT SCH (10:57)
[2020-12-19] MEDS: FERROUS SO4 300 MG/5 ML ORAL SOLN UNIT DOSE CUPS GT SCH (10:58)
[2020-12-19] MEDS: MEMANTINE HCL 5 MG TABLET (UD) GT SCH ×2 (10:58→21:25)
[2020-12-19] MEDS: VANCOMYCIN/WATER BAGS 1,250 MG/250 ML BAG IVPB SCH (12:14)
[2020-12-19] MEDS ORDERED: MAGNESIUM SULF 50% (8.12 MEQ/2 ML-1 GM VIAL) IVPB ONE (12:47)
[2020-12-19] MEDS ORDERED: NAPH,MB-DB/K PH,MBDB POWDER PACKET PO ONE (12:47)
[2020-12-19] MEDS: MIRTAZAPINE 15 MG TABLET (FP) GT SCH (21:25)
[2020-12-20] MEDS: ALBUTEROL SO4 2.5/IPRATROPIUM 0.5 INH SOL 3 ML VIAL.NEB. NEB SCH ×4 (08:06→20:37)
[2020-12-20 08:24] LABS: BASO % 0.2 % (0-2.0); EOS % 1.9 % (0-4.5); HEMATOCRIT 27.6 % (35.4-49); HEMOGLOBIN 9.1 GM/dL (11.7-16.9); MCH 24.7 pg (25.7-33.7); MCHC 32.9 g/dl (32.0-35.9); MEAN CELL VOLUME 75.1 fl (80-96); MEAN PLT VOLUME 8.1 fl (7.5-11.1); MONO % 6.3 % (3.8-10.2); NEUT % 88.6 % (42.8-82.8); PLATELET COUNT 295 K/MM3 (134-434); RBC 3.68 M/mm3 (4.00-5.60); RDW 18.3 % (11.9-15.9); WHITE BLOOD COUNT 8.8 K/mm3 (4.0-10.0)
[2020-12-20 08:35] LABS: CALCIUM 8.3 mg/dL (8.5-10.1)
[2020-12-20 08:36] LABS: ALBUMIN 1.8 g/dl (3.4-5.0); BLOOD UREA NITROGEN 11.1 mg/dL (7-18); MAGNESIUM 1.7 mg/dL (1.8-2.4)
[2020-12-20 08:39] LABS: CREATININE 0.6 mg/dL (0.55-1.3); PHOSPHOROUS 2.6 mg/dL (2.5-4.9)
[2020-12-20 08:40] LABS: BILIRUBIN,TOTAL 0.6 mg/dL (0.2-1); TOT PROT 6.1 g/dl (6.4-8.2)
[2020-12-20] MEDS ORDERED: PT OWN MED DRAWER 7, Y5N ONE (10:05)
[2020-12-20] MEDS: levETIRAcetam 500 MG/5 ML ORAL SOLUTION (UNIT-DOSE CUPS) GT SCH ×2 (10:16→21:22)
[2020-12-20] MEDS: amLODIPine BESYLATE 5 MG TABLET (FP) GT SCH (10:16)
[2020-12-20] MEDS: ENOXAPARIN NA (PORCINE) 40 MG/0.4 ML DISP.SYRIN SQ SCH (10:16)
[2020-12-20] MEDS: THIAMINE HCL 100 MG TABLET (FP) NGT SCH (10:16)
[2020-12-20] MEDS: FERROUS SO4 300 MG/5 ML ORAL SOLN UNIT DOSE CUPS GT SCH (10:17)
[2020-12-20] MEDS: MEMANTINE HCL 5 MG TABLET (UD) GT SCH ×2 (10:17→21:22)
[2020-12-20] MEDS: PHENYTOIN 100 MG/4 ML U-D CUP GT SCH ×2 (10:18→21:22)
[2020-12-20] MEDS ORDERED: MAGNESIUM SULF 50% (8.12 MEQ/2 ML-1 GM VIAL) IVPB ONE ×2 (11:44→12:15)
[2020-12-20] MEDS ORDERED: MAGNESIUM 2GM/50ML STERILE WATER IVPB IVPB ONE (12:15)
[2020-12-20] MEDS ORDERED: LACTOBACILLUS ACIDOPHILUS 1 TABLET PO SCH (14:00)
[2020-12-20] MEDS: MIRTAZAPINE 15 MG TABLET (FP) GT SCH (21:22)
[2020-12-20] MEDS: LACTOBACILLUS ACIDOPHILUS 1 TABLET PO SCH (21:23)
[2020-12-21] MEDS ORDERED: ACETAMINOPHEN 325 MG TABLET (FP) PO ONE (06:33)
[2020-12-21] MEDS: ALBUTEROL SO4 2.5/IPRATROPIUM 0.5 INH SOL 3 ML VIAL.NEB. NEB SCH ×4 (07:40→20:22)
[2020-12-21 08:41] LABS: BASO % 0.3 % (0-2.0); EOS % 2.4 % (0-4.5); HEMATOCRIT 26.2 % (35.4-49); HEMOGLOBIN 8.5 GM/dL (11.7-16.9); LYMPH % 5.9 % (8-40); MCH 24.3 pg (25.7-33.7); MCHC 32.3 g/dl (32.0-35.9); MEAN CELL VOLUME 75.2 fl (80-96); MONO % 7.5 % (3.8-10.2); NEUT % 83.9 % (42.8-82.8); PLATELET COUNT 360 K/MM3 (134-434); RBC 3.48 M/mm3 (4.00-5.60); RDW 18.3 % (11.9-15.9); WHITE BLOOD COUNT 7.6 K/mm3 (4.0-10.0)
[2020-12-21] MEDS ORDERED: PT OWN MED DRAWER 7, Y5N ONE ×2 (09:02→20:34)
[2020-12-21] MEDS: PHENYTOIN 100 MG/4 ML U-D CUP GT SCH ×2 (09:16→21:21)
[2020-12-21] MEDS: ENOXAPARIN NA (PORCINE) 40 MG/0.4 ML DISP.SYRIN SQ SCH (09:16)
[2020-12-21] MEDS: FERROUS SO4 300 MG/5 ML ORAL SOLN UNIT DOSE CUPS GT SCH (09:16)
[2020-12-21] MEDS: levETIRAcetam 500 MG/5 ML ORAL SOLUTION (UNIT-DOSE CUPS) GT SCH ×2 (09:16→21:21)
[2020-12-21 09:17] LABS: ALBUMIN 1.8 g/dl (3.4-5.0); BLOOD UREA NITROGEN 9.6 mg/dL (7-18); CALCIUM 8.9 mg/dL (8.5-10.1); MAGNESIUM 1.9 mg/dL (1.8-2.4)
[2020-12-21] MEDS: MEMANTINE HCL 5 MG TABLET (UD) GT SCH ×2 (09:17→21:21)
[2020-12-21] MEDS: LACTOBACILLUS ACIDOPHILUS 1 TABLET PO SCH ×2 (09:17→21:21)
[2020-12-21] MEDS: amLODIPine BESYLATE 5 MG TABLET (FP) GT SCH (09:17)
[2020-12-21] MEDS: THIAMINE HCL 100 MG TABLET (FP) NGT SCH (09:17)
[2020-12-21 09:20] LABS: CREATININE 0.6 mg/dL (0.55-1.3)
[2020-12-21 09:21] LABS: BILIRUBIN,TOTAL 0.2 mg/dL (0.2-1); PHOSPHOROUS 2.9 mg/dL (2.5-4.9)
[2020-12-21 09:22] LABS: TOT PROT 6.1 g/dl (6.4-8.2)
[2020-12-21 13:20] LABS: URINE APPEARANCE CLEAR; URINE BILIRUBIN NEGATIVE (NEGATIVE); URINE COLOR YELLOW; URINE GLUCOSE (UA) NEGATIVE (NEGATIVE); URINE KETONE NEGATIVE (NEGATIVE); URINE LEUK ESTERASE NEGATIVE (NEGATIVE); URINE NITRITE NEGATIVE (NEGATIVE); URINE PROTEIN TRACE (NEGATIVE); URINE UROBILINOGEN 0.2 mg/dL (0.2-1.0)
[2020-12-21] MEDS: MIRTAZAPINE 15 MG TABLET (FP) GT SCH (21:21)
[2020-12-22 07:48] LABS: BASO % 0.5 % (0-2.0); EOS % 4.7 % (0-4.5); HEMATOCRIT 26.9 % (35.4-49); HEMOGLOBIN 8.8 GM/dL (11.7-16.9); LYMPH % 10.2 % (8-40); MCH 24.5 pg (25.7-33.7); MCHC 32.5 g/dl (32.0-35.9); MEAN CELL VOLUME 75.3 fl (80-96); MEAN PLT VOLUME 8.2 fl (7.5-11.1); MONO % 9.3 % (3.8-10.2); NEUT % 75.3 % (42.8-82.8); PLATELET COUNT 458 K/MM3 (134-434); RBC 3.58 M/mm3 (4.00-5.60); WHITE BLOOD COUNT 4.9 K/mm3 (4.0-10.0)
[2020-12-22] MEDS: ALBUTEROL SO4 2.5/IPRATROPIUM 0.5 INH SOL 3 ML VIAL.NEB. NEB SCH ×4 (08:00→21:00)
[2020-12-22 08:14] LABS: ALBUMIN 1.8 g/dl (3.4-5.0); CALCIUM 8.7 mg/dL (8.5-10.1); MAGNESIUM 1.8 mg/dL (1.8-2.4)
[2020-12-22 08:17] LABS: CREATININE 0.5 mg/dL (0.55-1.3)
[2020-12-22 08:18] LABS: PHOSPHOROUS 2.9 mg/dL (2.5-4.9)
[2020-12-22 08:19] LABS: BILIRUBIN,TOTAL 0.1 mg/dL (0.2-1)
[2020-12-22] MEDS ORDERED: PT OWN MED DRAWER 7, Y5N ONE ×2 (10:21→21:34)
[2020-12-22] MEDS: FERROUS SO4 300 MG/5 ML ORAL SOLN UNIT DOSE CUPS GT SCH (11:05)
[2020-12-22] MEDS: LACTOBACILLUS ACIDOPHILUS 1 TABLET PO SCH ×2 (11:05→22:43)
[2020-12-22] MEDS: ENOXAPARIN NA (PORCINE) 40 MG/0.4 ML DISP.SYRIN SQ SCH (11:05)
[2020-12-22] MEDS: amLODIPine BESYLATE 5 MG TABLET (FP) GT SCH (11:05)
[2020-12-22] MEDS: PHENYTOIN 100 MG/4 ML U-D CUP GT SCH ×2 (11:05→22:43)
[2020-12-22] MEDS: THIAMINE HCL 100 MG TABLET (FP) NGT SCH (11:05)
[2020-12-22] MEDS: levETIRAcetam 500 MG/5 ML ORAL SOLUTION (UNIT-DOSE CUPS) GT SCH ×2 (11:05→22:43)
[2020-12-22] MEDS: MEMANTINE HCL 5 MG TABLET (UD) GT SCH ×2 (11:06→22:43)
[2020-12-22] MEDS: MIRTAZAPINE 15 MG TABLET (FP) GT SCH (22:43)
[2020-12-23] MEDS: ALBUTEROL SO4 2.5/IPRATROPIUM 0.5 INH SOL 3 ML VIAL.NEB. NEB SCH ×4 (07:59→20:10)
[2020-12-23 08:13] LABS: EOS % 4.3 % (0-4.5); HEMATOCRIT 27.9 % (35.4-49); HEMOGLOBIN 8.8 GM/dL (11.7-16.9); LYMPH % 9.6 % (8-40); MCH 23.8 pg (25.7-33.7); MCHC 31.6 g/dl (32.0-35.9); MEAN CELL VOLUME 75.4 fl (80-96); MEAN PLT VOLUME 7.7 fl (7.5-11.1); MONO % 9.6 % (3.8-10.2); NEUT % 75.5 % (42.8-82.8); PLATELET COUNT 558 K/MM3 (134-434); RDW 17.8 % (11.9-15.9); WHITE BLOOD COUNT 5.7 K/mm3 (4.0-10.0)
[2020-12-23 08:27] LABS: CALCIUM 9.2 mg/dL (8.5-10.1)
[2020-12-23 08:28] LABS: BLOOD UREA NITROGEN 9.3 mg/dL (7-18); MAGNESIUM 1.6 mg/dL (1.8-2.4)
[2020-12-23 08:31] LABS: CREATININE 0.5 mg/dL (0.55-1.3); PHOSPHOROUS 2.8 mg/dL (2.5-4.9)
[2020-12-23 08:32] LABS: TOT PROT 6.4 g/dl (6.4-8.2)
[2020-12-23 08:39] LABS: BILIRUBIN,TOTAL 0.2 mg/dL (0.2-1)
[2020-12-23] MEDS: ENOXAPARIN NA (PORCINE) 40 MG/0.4 ML DISP.SYRIN SQ SCH (09:38)
[2020-12-23] MEDS: THIAMINE HCL 100 MG TABLET (FP) NGT SCH (09:39)
[2020-12-23] MEDS: LACTOBACILLUS ACIDOPHILUS 1 TABLET PO SCH ×2 (09:39→22:20)
[2020-12-23] MEDS: MEMANTINE HCL 5 MG TABLET (UD) GT SCH ×2 (09:39→22:31)
[2020-12-23] MEDS: levETIRAcetam 500 MG/5 ML ORAL SOLUTION (UNIT-DOSE CUPS) GT SCH ×2 (09:39→22:20)
[2020-12-23] MEDS: FERROUS SO4 300 MG/5 ML ORAL SOLN UNIT DOSE CUPS GT SCH (09:39)
[2020-12-23] MEDS: MAGNESIUM SULF 50% (8.12 MEQ/2 ML-1 GM VIAL) IVPB ONE ×2 (09:40→10:48)
[2020-12-23] MEDS: PHENYTOIN 100 MG/4 ML U-D CUP GT SCH (09:40)
[2020-12-23] MEDS: amLODIPine BESYLATE 5 MG TABLET (FP) GT SCH (09:42)
[2020-12-23] MEDS ORDERED: MAGNESIUM OXIDE 400 MG TABLET (FP) PO ONE (10:01)
[2020-12-23] MEDS ORDERED: PT OWN MED DRAWER 7, Y5N ONE ×2 (11:05→21:48)
[2020-12-23] MEDS: MIRTAZAPINE 15 MG TABLET (FP) GT SCH (22:20)
[2020-12-23 22:43] VITALS: BP 93/66; PULSE 95; TEMP 97.6
[2020-12-24] MEDS ORDERED: PHENYTOIN 100 MG/4 ML U-D CUP GT SCH (10:00)
== END 2020-12-23 22:35 | DRG 720 ==
LOC: JER 21:21 → JERBED 22:50 → JICU 12-09 06:36 → J8W 12-14 22:42
PROVIDERS: ADMIT Internal Medicine Pulmonary Disease; ATTEND Internal Medicine
PROC: 5A1955Z Respiratory Ventilation, Greater than 96 Consecutive Hours (ICD-10-PCS; principal; 2020-12-08)
PROC: 0BH17EZ Insertion of Endotracheal Airway into Trachea, Via Natural or Artificial Opening (ICD-10-PCS; 2020-12-08)
PROC: 3E0G76Z Introduction of Nutritional Substance into Upper GI, Via Natural or Artificial Opening (ICD-10-PCS; 2020-12-08)
DX: A41.9 Sepsis, unspecified organism (principal); J96.01 Acute respiratory failure with hypoxia; J96.02 Acute respiratory failure with hypercapnia; J69.0 Pneumonitis due to inhalation of food and vomit; N17.9 Acute kidney failure, unspecified; R13.10 Dysphagia, unspecified; E87.5 Hyperkalemia; R64 Cachexia; Z93.1 Gastrostomy status; E87.0 Hyperosmolality and hypernatremia; E87.2 Acidosis; E83.42 Hypomagnesemia; E16.2 Hypoglycemia, unspecified; F03.90 Unspecified dementia, unspecified severity, without behavioral disturbance, psychotic disturbance, mood disturbance, and anxiety; C13.9 Malignant neoplasm of hypopharynx, unspecified; F31.9 Bipolar disorder, unspecified; D64.9 Anemia, unspecified; E87.6 Hypokalemia; R19.7 Diarrhea, unspecified; B95.62 Methicillin resistant Staphylococcus aureus infection as the cause of diseases classified elsewhere; I10 Essential (primary) hypertension; G40.909 Epilepsy, unspecified, not intractable, without status epilepticus; Z68.1 Body mass index [BMI] 19.9 or less, adult; E78.5 Hyperlipidemia, unspecified; R94.31 Abnormal electrocardiogram [ECG] [EKG]; E86.0 Dehydration; B96.20 Unspecified Escherichia coli [E. coli] as the cause of diseases classified elsewhere; Z95.828 Presence of other vascular implants and grafts
CPT/HCPCS: 36415; 36600; 70450-TC; 71045-TC-FY; 71250-TC; 74018-TC-FY; 76705-TC; 80048; 80053; 80185; 80186; 81003; 82550; 82553; 82803; 82962; 83540; 83550; 83605; 83735; 84100; 84484; 85025; 85027; 85610; 85730; 86850; 86900; 86901; 87040; 87070; 87077; 87086; 87186; 87205; 87804; 87899; 93005; 93010; 94002; 94640; 97116-GP; 97162-GP; 99291; C9803; G0480; J1644; U0003; U0005

== ENCOUNTER 2021-07-03 13:28 | Emergency (ER) | payer OTHER ==
[2021-07-03 13:45] VITALS: TEMP 98.1; BMI 16.1
[2021-07-04 03:35] VITALS: BP 97/56; PULSE 97
== END 2021-07-04 04:36 ==
LOC: JER 13:28
DX: K94.23 Gastrostomy malfunction (principal)
CPT/HCPCS: 74018-TC-FY; 99283-25